=== PATIENT | female | born 2005 | race Caucasian/White ===

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

== ENCOUNTER 2025-02-24 05:18 | Emergency (ER) | payer MEDICAID, SELFPAY ==
--- NOTE | ~2025-02-24 | CT_ITS ---
EXAMINATION: CT HEAD WITHOUT CONTRAST CLINICAL INFORMATION: head trauma, intoxication COMPARISON: None available. TECHNIQUE: Contiguous axial imaging was performed from the skull base to vertex without intravenous administration of contrast. This CT examination was performed using dose optimization techniques as appropriate, variously including the following: *Automated exposure control *Adjustment of mA and/or kV according to patient size (this includes techniques or standardized protocols for targeted exams where dose is matched to indication/reason for exam; i.e. extremities or head) *Use of iterative reconstruction technique DLP: 596.83 mGy-cm FINDINGS: Soft tissue contusion/hematoma, right frontal soft tissue scalp. No acute cortical disruption in the bony calvarium. No acute intracranial hemorrhage, mass effect, midline shift, hydrocephalus or herniation. [place]-white matter differentiation is normal. Posterior cranial fossa contents demonstrated no acute intracranial hemorrhage or mass effect. Normal position of the cerebellar tonsils. Sellar/suprasellar region demonstrated no gross masses or focal hemorrhage. Poor pneumatization of the frontal sinuses. No air-fluid levels in the included paranasal sinuses. Tympanic cavities and mastoid cells are aerated. CT/CT cervical spine wo IV con IMPRESSION: No acute fracture, bony calvarium. No acute intracranial hemorrhage. Soft tissue contusion, right frontal soft tissue scalp. EXAMINATION: CT CERVICAL SPINE WITHOUT CONTRAST CLINICAL INFORMATION: Injury. Intoxication. COMPARISON: None available. TECHNIQUE: Contiguous axial images through the cervical spine using 3 mm collimation with bone and soft tissue algorithm. Sagittal and coronal reformatted images acquired. This CT examination was performed using dose optimization techniques as appropriate, variously including the following: *Automated exposure control *Adjustment of mA and/or kV according to patient size (this includes techniques or standardized protocols for targeted exams where dose is matched to indication/reason for exam; i.e. extremities or head) *Use of iterative reconstruction technique DLP: 276.26 mGy-cm FINDINGS: Craniocervical junction is intact with normal alignment between the occipital condyles and lateral masses of C1. Normal alignment between the vertebral bodies and the facet joints. C1 is intact. C2 is intact. C3 is intact. C4 is intact. C5 is intact. C6 is intact. C7 is intact. No prevertebral compartment hematoma. IMPRESSION: No acute fracture or trauma-related listhesis. Fleischner guidelines were followed. Electronically signed by: Fidencio Munguia MD 02/24/2025 07:05 AM EST RP
--- OUTSIDE RECORDS SUMMARY | 2025-02-24 05:14 | XMS_ITS | Encounter Summary ---
Author Organization [facility] Address [address] [place] [id number] Phone Care Team Providers Care Line Fixer Name Role Phone Nancy Cage MD Primary Care Provider + [phone] Reason for Visit * Reason Comments ED Admission Encounter Details Date Type Department Care Team ([facility] st Contact Info) Description 02/24/2025 5:14 AM EST - Present Emergency [facility] - Patient Ping Social History Tobacco Use Types Packs/Day Years Used Date Smoking Tobacco: Some Days Comments:Radha typically uses marijuana more, but has not been using it as much lately since she is waiting on a medical card. Vapes semi regularly as well (did not specify whether it is nicotine or marijuana). Alcohol Use Standard Drinks/Week Comments Not Currently 1 (1 standard drink = 0.6 oz pure alcohol) Has drank 1-2 times in the past with friends. Usually only has 1 drink. Does not like the feeling of being drunk. Hunger/Food Answer Date Recorded In the last 12 months, did y ou or your family ever eat less than you felt you should because there wasn't enough money for food? No 11/29/2023 Stable Housing Answer Date Recorded Are you worried that in the next 2 months you may not have stable housing? No 11/29/2023 Transportation Concerns Answer Date Rec orded In the last 12 months, have you or your family ever had to go without healthcare because you didn't have a way to get there? No 11/29/2023 Hazards in Home Answer Date Recorded Think about the place you li ve. Do you have problems with any of the following? Pests (mice or roaches), mold, no/not working smoke detectors, water leaks, no window guards. No 2023 Financing Utilities Answer Date Recorde d In the last 12 months, has t he electric, gas, oil, or water company threatened to shut off your services in your home? No 11/29/2023 Safety at Home Answer Date Recorded Are you or your family worried about feeling saf e in your home? No 11/29/2023 Outside Support Answer Date Recorded Do you feel that you need mo re support from other people or programs to help you care for yourself or your family? No 11/29/2023 Understanding Health Concerns Answer Da te Recorded Do you need help understandi ng your or your child's healthcare needs (diagnosis, medications, plan, etc.)? No 11/29/2023 Financing Health Concerns Answer Date R ecorded In the last 12 months, was t here a time when your child needed to see a doctor or get medications or supplies but could not because of cost? No 11/29/2023 Missing School or Work Answer Date Flavio rded Did you or your child miss s chool or work because of a health problem that could have been avoided? No 11/29/2023 Child Education Answer Date Recorded Do you have concerns about y our/your child's learning or behavior in school, preschool, or daycare? No 11/29/2023 Comments No Sex and Gender Information Value Date Recorded Sex Assigned at Female 02/25/2024 5:49 PM EST Legal Sex Female 11:11 PM EST Gender Identity Female 07/20/2021 2:56 PM EDT Sexual Orientation Choose not to answer 03/05/20 24 4:07 PM EST documented as of this encounter Plan of Treatment Not on file documented as of this encounter Visit Diagnoses Not on filedocumented in this encounter Care Teams Line Fixer Relationship Specialty Start Date End Date Nancy Cage MD [address] [place] [id number] PCP - General Pediatrics 04/12/18 documented as of this encounter
[2025-02-24 05:25] VITALS: BP 147/87; PULSE 129; RESP 24; TEMP 36.7; O2SAT 98; BMI 19.3
[2025-02-24 05:34] VITALS: BP 147/87; PULSE 129; RESP 24; TEMP 36.7; O2SAT 98
[2025-02-24 05:43] VITALS: PULSE 126
[2025-02-24 05:56] VITALS: BP 127/91; PULSE 123; RESP 16; TEMP 36.7; O2SAT 98
[2025-02-24 05:58] LABS: Hematocrit 43.6 % (37.0-47.0); Hemoglobin 14.7 g/dl (12.0-16.0); Imm Gran Abs Auto 0.02 X10*3/uL (0.00-0.03); Imm Gran Pct Auto 0.3 % (0.0-0.4); Lymphocytes Absolute Auto 1.6 X10*3/uL (1.2-4.9); MANUAL DIFF FLAG NO; Mean Corpuscular HGB Conc 33.7 g/dl (31.0-35.0); Mean Corpuscular Hemoglobin 29.9 pg (27.0-33.0); Mean Corpuscular Volume 88.8 fL (80.0-98.0); NRBC Abs Auto 0.000 X10*3/uL (0.0-0.012); NRBC Pct Auto 0.0 /100WBC (0.0-0.2); Platelet Count 253 X10*3/uL (160-400); Red Blood Count 4.91 X10*6/uL (4.20-5.50); White Blood Count 7.8 X10*3/uL (4.8-10.8)
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
--- OUTSIDE RECORDS SUMMARY | 2025-02-24 06:05 | XMS_ITS | Encounter Summary ---
Author Organization [facility] Address [address] [place] [address] Phone Care Team Providers Care Occupational Medicine Physician Name Role Phone Rafael Henson MD Primary Care Provider [phone] Nancy Cage MD Primary Care Provider [phone] Encounter Details Date Type Department Care Team (Latest Contact Info) Description 10/06/2019 Ancillary Orders Virtual Department [address] [place] [address] Khoi Sandoval MD [address] [facility] [address] [place] [address] 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 Social History Tobacco Use Types Packs/Day Years Used Date Smoking Tobacco: Never Smokeless Tobacco: Never Alcohol Use Standard Drinks/Week Comments No 0 (1 standard drink = 0.6 oz pur e alcohol) Comments No Sex and Gender Information Value Date Recorded Sex Assigned at Female 06/16/2018 7:15 PM EDT Legal Sex Female 8:42 PM EDT Gender Identity Female 06/16/2018 7:15 PM EDT Sexual Orientation Straight 10/07/2019 10 :19 PM EDT documented as of this encounter Plan of Treatment Not on file documented as of this encounter Results * XR Tibia Fibula 2 Views (Left) (10/06/2019 1:10 PM EDT) Anatomical Region Laterality Modality Leg Left Computed Radiogr aphy 10/06/2019 1:20 PM EDT Impressions 10/06/2019 1:22 PM EDT No acute fracture. POS - [id number] Narrative 10/06/2019 1:22 PM EDT HISTORY: As above. COMPARISON: None. LEFT TIBIA-FIBULA RADIOGRAPH FINDINGS: 3 views obtained. No acute fracture or malalignment. Joint spaces are preserved. No bone lesions. No soft tissue swelling. Procedure Note Adriano Esparza MD - 10/06/2019 HISTORY: As above. COMPARISON: None. LEFT TIBIA-FIBULA RADIOGRAPH FINDINGS: 3 views obtained. No acute fracture or malalignment. Joint spaces are preserved. No bonelesions. No soft tissue swelling. IMPRESSION: No acute fracture. 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 It is not the complete legal health record.[facility]
--- OUTSIDE RECORDS SUMMARY | 2025-02-24 06:05 | XMS_ITS | Encounter Summary ---
Author Organization [facility] Address [address] [place] [phone] Phone Care Team Providers Care Direct Mail Coordinator Name Role Phone Nancy Cage MD Primary Care Provider + [phone] Reason for Visit * Reason Onset Date Comments Med Refill Med Refill 08/25/2019 Encounter Details Date Type Department Care Team (Late st Contact Info) Description 08/18/2019 Refill [facility] [place] [address] [place] [address] Nancy Cage MD [address] [place] [address] Disruptive mood dysregulation disorder Social History Tobacco Use Types Packs/Day Years Used Date Smoking Tobacco: Never Assessed Hunger/Food Answer Date Recorded In the last 12 months, did y ou or your family ever eat less than you felt you should because there wasn't enough money for food? No 03/05/2019 Stable Housing Answer Date Recorded Are you worried that in the next 2 months you may not have stable housing? No 03/05/2019 Transportation Concerns Answer Date Rec orded In the last 12 months, have you or your family ever had to go without healthcare because you didn't have a way to get there? No 03/05/2019 Hazards in Home Answer Date Recorded Think about the place you li ve. Do you have problems with any of the following? Pests (mice or roaches), mold, no/not working smoke detectors, water leaks, no window guards. No 2018 Financing Utilities Answer Date Recorde d In the last 12 months, has t he electric, gas, oil, or water company threatened to shut off your services in your home? No 03/05/2019 Safety at Home Answer Date Recorded Are you or your family worried about feeling saf e in your home? No 03/05/2019 Outside Support Answer Date Recorded Do you feel that you need mo re support from other people or programs to help you care for yourself or your family? No 03/05/2019 Understanding Health Concerns Answer Da te Recorded Do you need help understandi ng your or your child's healthcare needs (diagnosis, medications, plan, etc.)? No 03/05/2019 Financing Health Concerns Answer Date R ecorded In the last 12 months, was t here a time when your child needed to see a doctor or get medications or supplies but could not because of cost? No 03/05/2019 Missing School or Work Answer Date Flavio rded Did you or your child miss s chool or work because of a health problem that could have been avoided? No 03/05/2019 Comments No Sex and Gender Information Value Date Recorded Sex Assigned at Female 02/25/2024 5:49 PM EST Legal Sex Female 11:11 PM EST Gender Identity Female 07/20/2021 2:56 PM EDT Sexual Orientation Choose not to answer 03/05/20 24 4:07 PM EST documented as of this encounter Miscellaneous Notes * Telephone Encounter - Andreea Palacios LPN - 08/25/2019 1:56 PM EDT Refill requested for Leslie???s: Sertraline 50 mg Refill request source: Phone call-- parent/guardian This medication was last refilled on 03/28/19 An office visit is recommended. Med check scheduled for 09/02/19 To be forwarded to provider for review. [facility]/pharmacy #[id number] - [place], [place] - [address] [facility] [address] [facility] [address] PCP: Nancy Cage MD * Telephone Encounter - Nancy Cage MD - 08/18/2019 5:48 AM EDT Patient was supposed to be transitioning to psychiatrist. Please call for an update and schedule for a med check if not under the care of a prescriber. Thanks! documented in this encounter Plan of Treatment Not on file documented as of this encounter Visit Diagnoses Diagnosis Disruptive mood dysregulation disorder documented in this encounter Care Teams Direct Mail Coordinator Relationship Specialty Start Date End Date Nancy Cage MD [address] [place] [phone] PCP - General Pediatrics 04/12/18 documented as of this encounter
--- OUTSIDE RECORDS SUMMARY | 2025-02-24 06:05 | XMS_ITS | Encounter Summary ---
Author Organization [facility] Address [address] [place] [address] Phone Care Team Providers Care Patient Registration Rep Name Role Phone Nancy Cage MD Primary Care Provider [phone] Encounter Details Date Type Department Care Team ([facility] st Contact Info) Description 10/25/2016 Conversion Encounter [facility] - [address], [address] [place] [address] Rafael Henson MD Social History Tobacco Use Types Packs/Day Years Used Date Smoking Tobacco: Never Assessed Comments Unknown Sex and Gender Information Value Date Recorded [...] on filedocumented in this encounter Care Teams Patient Registration Rep Relationship Specialty Start Date End Date Nancy Cage MD [address] [place] [address] PCP - General Pediatrics 04/12/18 documented as of this encounter
--- OUTSIDE RECORDS SUMMARY | 2025-02-24 06:05 | XMS_ITS | Clinical Summary ---
Author Organization [facility] Address [address] [place] [address] Phone Care Team Providers Care Freezer Assistant Name Role Phone Nancy Cage MD Primary Care Provider [phone]- [phone] Allergies Active Allergy Reactions Criticality Noted Date Comments [id number] 8 Diphenhydramine Feeling Irritable Low 06/16/2018 Becomes hyper Becomes hyper Other reaction(s): agitation Medications docusate sodium (COLACE) 100 MG capsule Take 100 mg by mouth 2 (two) times a day. Active sertraline (ZOLOFT) 50 MG tablet Take 50 mg by mouth daily. Active methylphenidate HCl (RITALIN) 20 MG tablet Take 20 mg by mouth 2 (two) times a day. Active guanFACINE (TENEX) 1 MG tablet Take 1 mg by mouth nightly. Active lurasidone (LATUDA) 60 mg Tab Take 40 mg by mouth daily. Active melatonin 3 mg Tab Take 6 mg by mouth. Active traZODone (DESYREL) 50 MG tablet Take 25 mg by mouth nightly at bedtime. Active diazePAM (DIASTAT ACUDIAL) 5-7.5-[address] 5 mg rectally once as needed (dystonic reaction). 4 kit 9 Active Additional Information Patient not taking.Reported on 11/12/2024 cetirizine (ZYRTEC) 10 MG tablet 1 Active EPINEPHrine 0.3 mg/0.3 mL auto-injector Inject 0.3 mg into the muscle. 1 Active ketotifen (ZADITOR) 0.025 % (0.035 %) ophthalmic solution Apply 1 drop to eye. 2 Active guanFACINE (TENEX) 2 MG tablet Take by mouth. Activ e melatonin 5 mg Tab 10 mg. PRN 1 Active Active Problems Problem Noted Date Diagnosed Date Anxiety 11/12/2024 Chronic post-traumatic stress disorder (PTSD) Allergic reaction 07/20/2021 Overview (11/12/2024): Has Epipen due to prior allergic reaction, respiratory symptoms, unknown trigger. ADHD (attention deficit hyperactivity disorder) 06/01/2016 Overview (11/12/2024): Noted in discharge summary, [facility], unspecified type Family History Relation Status Comments Mother Alive Social History Tobacco Use Types Packs/Day Years Used Date Smoking Tobacco: Never Smokeless Tobacco: Never Alcohol Use Standard Drinks/Week Comments No 0 (1 standard drink = 0.6 oz pur e alcohol) Education Answer Date Recorded Are you interested in more education? Not on connor e 07/14/2022 Are you concerned about learning? Not on file 07/14/2022 No 07/14/2022 No 07/14/2022 Digital Access Answer Date Recorded No 08/14/2022 No 08/14/2022 Reliable internet access at home? Not on file 08/14/2022 Device with a working camera? Not on file Intimate Partner Violence Answer Date R ecorded Are you denied basic needs s uch as food, clothing, or medical care? No 06/19/2022 In the past 12 months have y ou been in a relationship with a person who hurts, threatens, or tries to control you? No 06/19/2022 Are you denied basic needs s uch as food, clothing, or medical care? No 06/19/2022 In the past 12 months have y ou been in a relationship with a person who hurts, threatens, or tries to control you? No 06/19/2022 Comments No Sex and Gender Information Value Date Recorded Sex Assigned at Female 06/16/2018 7:15 PM EDT Legal Sex Female 8:42 PM EDT Gender Identity Female 06/16/2018 7:15 PM EDT Sexual Orientation Straight 10/07/2019 10 :19 PM EDT Last Filed Vital Signs Vital Sign Reading Time Taken Comments Blood Pressure 104/64 11/12/2024 4:14 PM EDT Pulse 65 11/12/2024 4:14 PM EDT Temperature 36.8 C (98.2 F) 11/12/2024 4:14 PM EDT Respiratory Rate 16 11/12/2024 4:14 PM EDT Oxygen Saturation 99% 11/12/2024 4:14 PM EDT Inhaled Oxygen Concentration - - Weight 49.9 kg (110 lb) 06/19/2022 10:41 AM EDT Height 157.5 cm (5' 2 ) 06/19/2022 10:41 AM EDT Body Mass Index 20.12 06/19/2022 10:41 AM EDT Body Mass Index Percentile 40.13% 06/19/2022 10: 41 AM EDT Growth Chart: CDC (Girls, 2- 20 Years) Plan of Treatment Health Maintenance Due Date Last Done Comments DEVELOPMENTAL/BEHAVIORAL SCREENING (PHQ, PSC, or SWYC) 2008 DEPRESSION SCREENING 2017 MENINGOCOCCAL VACCINES (B) (1 of 2 - Standard) 2021 ADOLESCENT UNIVERSAL LIPID SCREENING 2022 03/05/2019, 03/05/2019 BMI ASSESSMENT 06/20/2023 06/19/2022 HEPATITIS C SCREENING 07/25/2023 09/16/2018 HIV ONE-TIME SCREENING (18-65 YEARS) 07/25/2023 INFLUENZA VACCINE (#1) 2024 , 03/05/2019, 01/11/2017, Additional history exists COVID-19 VACCINE ( season) 2024 09/14/2020, 08/23/2020 SMOKING Hx and SMOKELESS TOBACCO SCREENING 11/12/2025 11/12/2024 COMBINED DTaP,Tdap,Td (8 - Td or Tdap) 08/06/2032 08/06/2022, 08/29/2017, 10/15/2009, Additional history exists HEPATITIS B VACCINES Completed 02/12/2006, 2005, 2005, Additional history exists HIB VACCINES Aged Out 04/26/2006, 01/18, 2005, Additional history exists No longer eligible based on patient's age to complete this topic HEPATITIS A VACCINES Completed 08/06/2007, 07/27/19 07 PNEUMOCOCCAL VACCINES (0-49 years) Aged Out 10/15/2009, 11/20/2006, 02/12/2006, Additional history exists No longer eligible based on patient's age to complete this topic MMR VACCINES Completed 10/18/2010, 06/2006, 11/20/2006 VARICELLA VACCINES Completed 10/18/2010, 0 11/20/2006, 11/20/2006 HPV VACCINES Completed 03/05/2019, 08/29/2017 MENINGOCOCCAL VACCINES (ACWY) Completed 11/17/2021, 08/29/2017 Medical Devices Not on file Procedures Procedure Name Priority Date/Time Associated Diagnosis Comments LIPID PANEL Routine 03/05/2019 11:33 AM EST Disruptive mood dysregulation disorder HEPATITIS A ANTIBODY, IGM Routine 09/16/2018 4:11 PM EDT Diarrhea Contact with and (suspected) exposure to viral hepatitis from Last 3 Months or Most Recently Relevant to Health Maintenance Results * (ABNORMAL) Lipid panel (03/05/2019 11:33 AM EST) HDL 71 mg/dL [facility] Comment: Interpretation <40 mg/dL: Low HDL cholesterol (major risk factor for CHD) Greater than or equal to 60 mg/dL: High HDL cholesterol ( negative risk factor for CHD) HDL - cholesterol is affected by a number of factors, e.g. smoking, excerise, hormones, sex and age. CHOLESTEROL 133 0 - 169 mg/dL [facility] Comment: Pediatric Reference Ranges for 2 to 18 years Acceptable: Less than 170 mg/dL Borderline: 170 - 199 mg/dL High: Greater than or equal to 200 mg/dL TRIGLYCERIDES 35 30 - 160 mg/dL [facility] LDL 55 50 - 129 mg/dL [facility] Comment: LDL levels in terms of risk for coronary heart disease: <100 mg/dL: Optimal 100-129 mg/dL: Near or above optimal 130-159 mg/dL: Borderline high 160-189 mg/dL: High >190 mg/dL: Very High CARDIAC RISK RATIO 1.9(L) 3.3 - 4.4 [facility] 03/05/2019 11:3 3 AM EST 03/05/2019 11:39 AM EST us Nancy Cage MD LAB BLOOD BKR ORDERABLES F inal Result [address] [address] * Hepatitis A antibody, IgM (09/16/2018 4:11 PM EDT) Hepatitis A Antibody, IgM Negative Negative [facility] 09/16/2018 4:11 PM EDT 09/16/2018 4:13 PM EDT us Sofía Cifuentes CNP LAB BLOOD BKR ORDERABLES Final Result Performing Organization Address City/[facility]/ZIP Co de Phone Number [address] [address] from Last 3 Months or Most Recently Relevant to Health Maintenance Insurance [facility] O [address] CHILDRENS ACO S ACO [employer] [address] [place] [address] [place] [place] [address] [place] [place] [facility] [place] [facility] [place] [facility] [place] Member Subscriber Plan / Payer (Ef fective 2022-Present) Name:Adrianne Leslie Relation to Subscriber:Self Name:AdrianneLeslie maya Payer ID:[id number] Group ID:[id number] Type:Medicaid Address: [address] [place] [address] [place] [address] [address] [place] [address] Care Teams Freezer Assistant Relationship Specialty Start Date End Date Nancy Cage MD [address] [place] [address] [email or web address] PCP - General Pediatrics 11/03/19 Additional Source Comments The information contained in this document represents components of the legal health record. It is not the complete legal health record.[facility]
--- OUTSIDE RECORDS SUMMARY | 2025-02-24 06:05 | XMS_ITS | Encounter Summary ---
Author Organization Loc[facility] Address [address] [place] [address] Phone Care Team Providers Care Urgent Care Physician Assistant Name Role Phone Keely Arriaza MD Primary Care Provider [phone]- [phone] Kay More MD Primary Care Provider [phone] Rafael Henson MD Primary Care Provider Nancy Cage MD Primary Care Provider [phone]- [phone] Encounter Details Date Type Department Care Team (Late st Contact Info) Description 07/02/2017 Ancillary Orders [facility], X-Ray - [facility] [address] [place], [place] [id number] Nancy Cage MD [address] [facility] [address] [place] [address] [email or web address] Injury of left wrist, initial encounter Social History Tobacco Use Types Packs/Day Years Used Date Smoking Tobacco: Never Smokeless Tobacco: Never Alcohol Use Standard Drinks/Week Comments No 0 (1 standard drink = 0.6 oz pur e alcohol) Comments Unknown Sex and Gender Information Value Date Recorded Sex Assigned at Female 06/16/2018 7:15 PM EDT Legal Sex Female 8:42 PM EDT Gender Identity Female 06/16/2018 7:15 PM EDT Sexual Orientation Straight 10/07/2019 10 :19 PM EDT documented as of this encounter Plan of Treatment Not on file documented as of this encounter Results * XR WRIST 3 OR MORE VIEWS (LEFT) (07/02/2017 6:56 PM EDT) Anatomical Region Laterality Modality Wrist Left Radiographic Constanza ging 07/02/2017 8:34 PM EDT Impressions 07/02/2017 8:35 PM EDT Unremarkable plain film appearance of the wrist POS [id number] Narrative 07/02/2017 8:35 PM EDT 4 views. No comparison No fracture or dislocation. No opaque foreign bodies. No significant arthritic changes. No static instability pattern. Procedure Note Deonte Dunham MD - 07/02/2017 4 views. No comparison No fracture or dislocation. No opaque foreign bodies. No significant arthritic changes. No static instability pattern. IMPRESSION: Unremarkable plain film appearance of the wrist POS [id number] Nancy Cage MD IMG XR UPPER EXTREMITY Fin al Result documented in this encounter Visit Diagnoses Diagnosis Injury of left wrist, initial encounter Injury of left wrist, initial encounter documented in this encounter Care Teams Urgent Care Physician Assistant Relationship Specialty Start Date End Date Keely Arriaza MD [address] [place] [address] PCP - General Pediatrics 05/17/17 07/28/17 Kay More MD [address] [place] [address] [id number] [place] [address] PCP - General Pediatrics 06/16/18 10/05/18 Rafael Henson MD [address] [place] [address] PCP - General Pediatrics 10/06/18 11/02/19 Nancy Cage MD [address] [place], [place] [address], [place] [address] [email or web address] PCP - General Pediatrics 11/03/19 documented as of this encounter Additional Source Comments The information contained in this document represents components of the legal health record. It is not the complete legal health record.[facility]
--- OUTSIDE RECORDS SUMMARY | 2025-02-24 06:05 | XMS_ITS | Clinical Summary ---
Author Organization [facility] Address [address] [place] [address] Phone Care Team Providers Care Fitting Supervisor Name Role Phone Nancy Cage MD Primary Care Provider + [phone] Allergies Active Allergy Reactions Criticality Noted Date Comments Diphenhydramine Becomes hyper Other reaction(s): agitation Medications Melatonin Maximum Strength 5 MG tablet 10 mg nightly as needed. 06/16/2020 Active cetirizine 10 MG tabletIndication s:Allergic rhinitis, unspecified seasonality, unspecified trigger Take 1 tablet (10 mg total) by mouth daily. 90 tablet 2 09/09/2024 Active Active Problems Problem Noted Date Diagnosed Date PMDD (premenstrual dysphoric disorder) 3 Overview (06/12/2022): Suggested by therapist and mom agrees. Also dysmenorrhea and heavy menses. Radha resistant at first but mom called back for Rx for patch; sent, + pt message w/instructions. F/u at August PE or prn. She likes girls so no contraceptive issue at this time. Chronic left shoulder pain 07/20/2021 Overview (07/20/2021): Seen 12/2020 and referred to PT, still has left neck and shoulder pain. Denies injury. Referred to ortho. Allergic reaction 07/20/2021 Overview (07/20/2021): Has Epipen due to prior allergic reaction, respiratory symptoms, unknown trigger. Assessment & Plan (11/29/2023 2:31 PM EDT): No further episodes. Saw psychiatry teacher and it may have been an extreme reaction to dust. Sleep disturbance 09/02/2019 Assessment & Plan (11/29/2023 2:33 PM EDT): Difficulty falling asleep and staying asleep, request for medical marijuana declined, discussed sleep hygiene. Assessment & Plan (09/02/2019 4:16 PM EDT): Advised pushing back bedtime by 30 minutes per week and not giving trazodone/melatonin until a more appropriate bed time. Goal is bedtime no earlier than 8 pm. Brainstormed ways to prevent the cat from coming into her room, mom will help with this at home. Again stressed the importance of establishing care with a psychiatrist. Follow up in 3 months if not yet under a new prescriber's care. Disruptive mood dysregulation disorder 7 Overview (07/20/2021): Since age 6. Meds managed by Cyndy Riley NP, and she has individual therapy and IHT. Assessment & Plan (11/29/2023 2:32 PM EDT): Has stopped all psychiatric meds and is no longer seeing a therapist. Still has anxiety but states she does not have any behavioral issues or outbursts anymore. Assessment & Plan (09/02/2019 4:18 PM EDT): Please continue to follow up on the plan to establish care with a psychiatrist to take over the prescribing of your medications as I am unable to do this viticulture teacher. Assessment & Plan (07/03/2019 5:25 PM EDT): Stable on current medication, working closely with a therapist, plan to transition to psychiatry within the month. Assessment & Plan (03/28/2019 12:20 PM EST): On multiple psychiatric medications, has required significant support including inpatient stays in the past. Recently has been under good control but unfortunately lose her psychiatrist due to lack of consistent follow up with [facility] therapist. Actively working to reestablish care at [facility]. Concern for reaction to Latuda (jaw locking), have placed a call to her previous prescriber to discuss. Assessment & Plan (03/05/2019 11:30 AM EST): Followed closely by a psychiatrist and attending a therapeutic school (non-residential). Doing well overall. Will check lipids and A1c today for annual screen while on an antipsychotic. Assessment & Plan (05/08/2017 3:23 PM EST): Doing well in residential placement in [address] [place] [address] ADHD (attention deficit hyperactivity disorder) 06/01/2016 Overview (07/20/2021): Noted in discharge summary, [place] [facility], unspecified type Assessment & Plan (11/29/2023 2:31 PM EDT): Not interested in any medication at this time. Has finished high school. Esotropia 09/26/2015 Assessment & Plan (07/20/2021 7:04 PM EDT): Referred back to ophth - sees Dr. Loja Assessment & Plan (03/05/2019 11:30 AM EST): Very low vision in one eye. Refuses to wear glasses. Discussed importance at length. Family circumstance 05/20/2011 Overview (07/20/2021): Mom has history of heroin use; viticulture teacher DCF involvement, has also lived w/GM in past when mom in treatment 07/2021: DYS now involved, though physical custody is with Mom. Resolved Problems Problem Noted Date Diagnosed Date Resolved Date Anxiety 05/12/2021 02/24/2023 Chronic post-traumatic stress disorder 05/12/2021 02/24/2023 Irregular sleep-wake rhythm, nonorganic origin 05/12/2021 02/24/2023 Sprain of left ankle 10/08/2019 022 Keratosis pilaris 07/20/2017 02/24/2023 Oppositional defiant disorder 06/08/2016 02/24/2023 Allergic rhinitis 09/27/2015 02/24/2023 Encounters Date Type Department Care Team Description 02/24/2025 5:14 AM EST - Present Emergency [facility] - Patient Pinruddy from Last 3 Months Immunizations Immunization Administration Dates Next Due DTaP 10/15/2009, 7,02/12/2006,12/08,2005 DTaP / Hep B / IPV 02/12/2006,2005, 006 HPV Vaccine 9 Valent 03/05/2019,08/29/2017 Hep A, ped/adol 08/06/2007,07/26/2006 Hep B, ped/adol 02/12/2006, 6,2005,07/24 HiB 04/26/2006 Hib (PRP-T) 02/13/2007, 6,2005,09/27 IPV 10/15/2009, 6,2005,09/27 Influenza 02/13/2007,04/05/2006,02/12/2006 Influenza, injectable, quadr ivalent, preservative free 01/06/2021,03/05/2019,01/11/2017,02/04 Influenza, injectable, trivalent 03/15/2010 Influenza, intranasal, quadrivalent 01/31/2013 Influenza, intranasal, trivalent 12/27/2011,1208/2010 MMR 10/18/2010,11/20/2006 MMRV 11/20/2006 Meningococcal Conj (Menactra) MCV4P 11/17/2021,0 08/29/2017 Pneumococcal Conjugate 11/20/2006,2005,2005,09/27 Pneumococcal Conjugate 13-Valent 010,10/15/2009,11/20/2006,02/12,2005,2005 Tdap 08/29/2017 Varicella 10/18/2010,11/20/2006 Family History Relation Name Status Comments Cousin Alive Father Alive Father: bipolar Father's Brother Paternal Un lionel: None Father's Sister Paternal Aun t: None Maternal Grandfather Alive Maternal Grandmother Alive Materna l Aunt: Hole in the heart Mother Alive Other 1 None Other 2 None Other 3 Alive Other 4 Alive Other 5 Alive Other 6 Alive Other 7 Alive Other 8 Alive Other 9 Alive Other 10 Alive bipolar Other 11 Alive Hole in the hea rt Other 12 heart attack be fore age 50 Paternal Grandfather Pat GFa ther: heart attack before age 50 Paternal Grandmother Alive Social History Tobacco Use Types Packs/Day Years Used Date Smoking Tobacco: Some Days Tobacco Cessation:Ready to Q uit: Not Asked; Counseling Given: Not Answered Comments:Radha typically uses marijuana more, but has [...] Sexual Orientation Choose not to answer 03/05/20 4:07 PM EST Last Filed Vital Signs Vital Sign Reading Time Taken Comments Blood Pressure 114/58 01/31/2024 5:11 PM EST Pulse 66 01/31/2024 5:11 PM EST Temperature 36.9 C (98.4 F) 01/31/2024 5:11 PM EST Respiratory Rate 17 01/31/2024 5:11 PM EST Oxygen Saturation 98% 01/31/2024 5:11 PM EST Inhaled Oxygen Concentration - - Weight 49.6 kg (109 lb 6.4 oz) 01/31/2024 5:11 P M EST Height 154.9 cm (5' 1 ) 11/29/2023 10:4 7 AM EDT Body Mass Index 20.67 11/29/2023 10:47 AM EDT Body Mass Index Percentile 40.07% 01/31/2024 5:1 1 PM EST Growth Chart: CDC (Girls, 2- 20 Years) Plan of Treatment Health Maintenance Due Date Last Done Comments Pneumococcal Vaccine (1 of - PPSV23, PCV20, or PCV21) 07/25/2011 10/15/2009, 10/15/2009, 11/20/2006, Additional history exists HIV Screening 2020 Men B Vaccine (1 of 2 - Standard) 2021 Hepatitis C Screening 07/25/2023 Chlamydia and Gonorrhea Screening 03/19/2024 Influenza Vaccines (#1) 2024 01/07/20 21, 03/05/2019, 01/11/2017, Additional history exists COVID-19 Vaccine (3 - 2024-2 6 season) 2024 09/14/2020, 08/23/2020 DTaP,Tdap,and Td Vaccines (7 - Td or Tdap) 08/30/2027 08/29/2017, 10/15/2009, 02/13/2007, Additional history exists Hepatitis B Vaccines Completed 02/12/2006, 02/12/2006, 2005, Additional history exists HIB Vaccines Completed 02/13/2007, 10/2006, 02/12/2006, Additional history exists Hepatitis A Vaccines Completed 08/06/2007, 07/27/19 07 IPV Vaccines Completed 10/15/2009, 01/18, 02/12/2006, Additional history exists MMR Vaccines Completed 10/18/2010, 06/2006, 11/20/2006 Varicella Vaccines Completed 10/18/2010, 0 11/20/2006, 11/20/2006 HPV Vaccines Completed 03/05/2019, 08/29/2017 Meningococcal Vaccine Completed 11/17/2021, 018 Insurance [facility] [address] [facility] [address] Care Teams Fitting Supervisor Relationship Specialty Start Date End Date Nancy Cage MD [address] [place] [id number] PCP - General Pediatrics 04/12/18
--- OUTSIDE RECORDS SUMMARY | 2025-02-24 06:05 | XMS_ITS | Encounter Summary ---
Author Organization [facility] Address [address] [place] [address] Phone Care Team Providers Care Pressed Or Blown Glass Worker Name Role Phone Nancy Cage MD Primary Care Provider + [phone] Reason for Visit * Reason Onset Date Comments Med Refill 10/17/2019 Encounter Details Date Type Department Care Team (Late st Contact Info) Description 10/17/2019 Refill [facility] [place] [address] [place] [address] Andreea Palacios LPN [address] [place] [address] Disruptive mood dysregulation disorder Social History Tobacco [...] last 12 months, has t he electric, [employer], oil, or water [employer] threatened to shut off your services in [...] encounter Miscellaneous Notes * Telephone Encounter - Khoi Sandoval MD - 10/19/2019 5:16 PM EDT Refilled by [facility] * Telephone Encounter - Ginette Marina LPN - 10/19/2019 2:36 PM EDT Mom called. Medication completely out. Need it for tomorrow. [facility]. * Telephone Encounter - Andreea Palacios LPN - 10/17/2019 3:52 PM EDT Refill requested for Leslie???s: Methylphenidate 20mg Refill request source: Phone call-- parent/guardian This medication was last refilled on 09/22/19 An office visit is not recommended. To be forwarded to provider for review. [facility]/pharmacy #[id number] - [place], [place] - [address] [facility] [address] [facility] [id number] PCP: Nancy Cage MD documented in this encounter Plan of Treatment Not on file documented as of this encounter Visit Diagnoses Diagnosis Disruptive mood dysregulation disorder documented in this encounter Care Teams Pressed Or Blown Glass Worker Relationship Specialty Start Date End Date Nancy Cage MD [address] [place] [address] PCP - General Pediatrics 04/12/18 documented as of this encounter
--- OUTSIDE RECORDS SUMMARY | 2025-02-24 06:05 | XMS_ITS | Encounter Summary ---
Author Organization [facility] Address [address] [facility] [address] [place] [address] Phone Care Team Providers Care Merchandise Worker Name Role Phone Keely Arriaza MD Primary Care Provider [phone] Kay More MD Primary Care Provider + [phone] Rafael Henson MD Primary Care Provider [phone] Nancy Cage MD Primary Care Provider [phone] Encounter Details Date Type Department Care Team (Latest Contact Info) Description 05/08/2017 Transcribe Orders [facility] Specimen Processing [address] [place] [address] Rafael Henson MD [address] [facility], [address] [place] [address] [email or web address] Sore throat (Primary Dx) Social History Tobacco Use Types Packs/Day Years [...] documented as of this encounter Results * (ABNORMAL) Streptococcus, Group A Culture (05/08/2017 3:23 PM EST) Specimen Source/ Description THROAT THROAT [facility] Special Requests None [facility] Culture/Test Rare STREPTOCOCCUS PYOGENES (BETA HEMOLYTIC GROUP A)(A) [facility] Report Status 05/11/2017 FINAL [facility] Other (Throat) 05/08/2017 3: 23 PM EST 05/08/2017 7:53 PM EST Rafael Henson MD MICROBIOLOGY - GENERAL ORDERABL ES Edited Result - Final [facility] [address] [place] [address] documented in this encounter Visit Diagnoses Diagnosis Sore throat- Primary Acute pharyngitis documented in this encounter Care Teams Merchandise Worker Relationship Specialty Start Date End Date Keely Arriaza MD [address] [place] [address] PCP - General Pediatrics 05/17/17 07/28/17 Kay More MD [address] [facility] [address] [place] [address] PCP - General Pediatrics 06/16/18 10/05/18 Rafael Henson MD [address] [place] [id number] PCP - General Pediatrics 10/06/18 11/02/19 Nancy Cage MD [address] [id number] PCP - General Pediatrics 11/03/19 documented as of this encounter Additional Source Comments The information contained in this document represents components of the legal health record. It is not the complete legal health record.[facility]
--- OUTSIDE RECORDS SUMMARY | 2025-02-24 06:05 | XMS_ITS | Encounter Summary ---
Author Organization [facility] Address [address] [place] [id number] Phone Care Team Providers Care Sales Analytics Manager Name Role Phone Nancy Cage MD Primary Care Provider + [phone] Reason for Visit * Reason Comments Med Refill Encounter Details Date Type Department Care Team (Late st Contact Info) Description 12/03/2017 Refill [facility] [place] [address] [place] [address] Ronn Dawn MD [address] [place] [address] Disruptive mood dysregulation disorder Social History Tobacco Use Types Packs/Day Years Used Date Smoking Tobacco: Never Assessed Comments No Sex and Gender Information Value Date Recorded Sex Assigned at Female 02/25/2024 5:49 PM EST Legal Sex Female 11:11 PM EST Gender Identity Female 07/20/2021 2:56 PM EDT Sexual Orientation Choose not to answer 03/05/20 24 4:07 PM EST documented as of this encounter Miscellaneous Notes * Telephone Encounter - Ronn Dawn MD - 12/03/2017 4:31 PM EDT Pt needs to call us about latuda it should be prescribed by her mental health care prescriber documented in this encounter Plan of Treatment Not on file documented as of this encounter Visit Diagnoses Diagnosis Disruptive mood dysregulation disorder documented in this encounter Care Teams Sales Analytics Manager Relationship Specialty Start Date End Date Deschene, Nancy, MD [address] [place] [address] PCP - General Pediatrics 04/12/18 documented as of this encounter
[2025-02-24 06:19] LABS: Alanine Aminotransferase 15 U/L (0-31); Albumin Level 5.0 g/dL (3.5-5.0); Alkaline Phosphatase 71 U/L (39-117); Anion Gap 17 (12-20); Aspartate Amino Transferase 30 U/L (5-31); Blood Urea Nitrogen 8 mg/dL (9-16); Calcium 9.0 mg/dL (8.4-10.2); Carbon Dioxide 22 mmol/L (22-29); Chloride 113 mmol/L (96-108); Creatinine Clr Calc Pharmacy 115.9; Estimated Glomerular Filt Rate > 60; Potassium 3.9 mmol/L (3.3-5.1); Sodium 148 mmol/L (135-145); Total Protein 7.6 g/dL (6.5-8.0)
[2025-02-24] MEDS: Nicotine 14 MG PATCH.TD24 TRANSDERMA (07:45)
[2025-02-24 07:57] VITALS: BP 114/81; PULSE 92; RESP 16; TEMP 36.4; O2SAT 97
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
[2025-02-24 08:15] VITALS: BP 114/81; PULSE 92; RESP 16; TEMP 36.4; O2SAT 97
== END 2025-02-24 08:16 | disposition home or self-care (01) ==
PROVIDERS: Emergency Provider Emergency Medicine
DX: F10.129 Alcohol abuse with intoxication, unspecified (principal); R45.1 Restlessness and agitation; S00.03XA Contusion of scalp, initial encounter; X58.XXXA Exposure to other specified factors, initial encounter; Y93.89 Activity, other specified; Y92.89 Other specified places as the place of occurrence of the external cause; Y99.8 Other external cause status
CPT/HCPCS: 36415; 70450; 72125; 80053; 80307; 84702; 85025; 99284

== ENCOUNTER → 2025-02-24 05:32 | Outpatient (BNV) | payer MEDICAID, SELFPAY | PROVIDERS: Emergency Provider Emergency Medicine; Visit Provider Radiology Diagnostic Radiology | DX: S00.03XA Contusion of scalp, initial encounter (principal); S19.9XXA Unspecified injury of neck, initial encounter; Z04.3 Encounter for examination and observation following other accident | CPT/HCPCS: 70450; 72125 ==